=== PATIENT | female | born 1945 | race Caucasian/White ===

== ENCOUNTER 2022-09-16 19:43 | Emergency (ER) | payer MEDICARE, OTHER ==
[2022-09-16] MEDS ORDERED: Take Home: Doxycycline 100 MG Cap, 4 Cap Pack PO ONE (20:04)
== END 2022-09-16 20:20 | disposition home or self-care (01) ==
LOC: VM.ED 19:43
DX: S30.861A Insect bite (nonvenomous) of abdominal wall, initial encounter (principal); W57.XXXA Bitten or stung by nonvenomous insect and other nonvenomous arthropods, initial encounter
CPT/HCPCS: 99281; 99283; A9270-GY